=== PATIENT | male | born 1945 | race Caucasian/White ===

== ENCOUNTER 2021-09-03 00:39 | Emergency (ER) | payer OTHER ==
[2021-09-03 01:33] LABS: Protime INR 1.09
[2021-09-03 01:35] LABS: Absolute Lymphocytes (CBC) 1.4 K/uL (0.7-4.9); Basophils % 0.6 % (0-1.3); Hematocrit 40.8 % (39.6-49.0); Lymphocytes % 12.6 % (15.3-44.8); MPV 7.8 fL (7.6-11.3); RBC Red Blood Cell Count 4.51 M/uL (4.33-5.43)
[2021-09-03] MEDS ORDERED: NA CHLORIDE 0.9% 1,000 ML ONE (01:50)
[2021-09-03 01:51] LABS: ALT/SGPT 46 U/L (12-78); AST/SGOT 30 U/L (15-37); Albumin 3.7 g/dL (3.4-5.0); Alkaline Phosphatase 106 U/L (45-117); BUN Blood Urea Nitrogen 19 mg/dL (7-18); Bicarbonate 22 mmol/L (21-32); Bilirubin Direct 0.2 mg/dL (0-0.2); Glucose Level 131 mg/dL (74-106); NT PRO-BNP 81 pg/mL (<125); Potassium 4.1 mmol/L (3.5-5.1); Sodium Level 141 mmol/L (136-145); Troponin (Emerg Dept Use Only) < 0.02 ng/mL (0.0-0.045)
--- NOTE | 2021-09-03 04:31 | EDPHYS ---
Physician Documentation [facility] Name: Joni Pierson Age: 75 yrs Sex: Male : 1945 Arrival Date: 09/03/2021 Time: 00:42 Bed 18 Private MD: ED Physician Julio César Isaac HPI: 09/03 01:20 This 75 yrs old Male presents to ER via Ambulatory with complaints of pkl Epigastric Pain. 01:20 The patient or guardian reports chest pain that is located primarily in the substernal pkl area. Onset: yesterday. Associated signs and symptoms: Pertinent positives: cough, shortness of breath. The chest pain is described as dull. Patient has Hernández esophagitis. Said aspirated last night. Today complained of chest pain, cough and SOB. 01:26 The patient has experienced similar episodes in the past, a few times. pkl Historical: - Allergies: 01:07 No Known Allergies; sj1 - Home Meds: 01:07 Omeprazole Oral once daily [Active]; gabapentin oral once daily [Active]; sj1 - Immunization history:: Adult Immunizations up to date, Client reports receiving the 2nd dose of the Covid vaccine, Client reports receiving the 1st dose of the Covid vaccine. - Social history:: Smoking status: Patient denies any tobacco usage or history of. Patient/guardian denies using alcohol, street drugs, tobacco products. ROS: 01:26 Eyes: Negative for injury, pain, redness, and discharge, ENT: Negative for injury, pkl pain, and discharge, Neck: Negative for injury, pain, and swelling. 01:26 Cardiovascular: Positive for chest pain, with cough. 01:26 Respiratory: Positive for cough, with clear sputum, shortness of breath, at rest. 01:26 Abdomen/GI: Negative for abdominal pain, nausea, vomiting, and diarrhea. 01:26 Back: Negative for acute changes. 01:26 : Negative for urinary symptoms. 01:26 MS/extremity: Negative for acute changes. 01:26 Skin: Negative for rash. 01:26 Neuro: Negative for altered mental status, loss of consciousness. Exam: 01:26 Head/Face: Normocephalic, atraumatic. Eyes: Pupils equal round and reactive to light, pkl extra-ocular motions intact. Lids and lashes normal. Conjunctiva and sclera are non-icteric and not injected. Cornea within normal limits. Periorbital areas with no swelling, redness, or edema. ENT: Nares patent. No nasal discharge, no septal abnormalities noted. Tympanic membranes are normal and external auditory canals are clear. Oropharynx with no redness, swelling, or masses, exudates, or evidence of obstruction, uvula midline. Mucous membranes moist. Neck: Trachea midline, no thyromegaly or masses palpated, and no cervical lymphadenopathy. Supple, full range of motion without nuchal rigidity, or vertebral point tenderness. No Meningismus. Chest/axilla: Normal chest wall appearance and motion. Nontender with no deformity. No lesions are appreciated. Cardiovascular: Regular rate and rhythm with a normal S1 and S2. No gallops, murmurs, or rubs. Normal PMI, no JVD. No pulse deficits. 01:26 Respiratory: mild respiratory distress is noted, Respirations: normal, Breath sounds: rales, that are mild, are scattered. 01:26 Abdomen/GI: Bowel sounds: normal, Palpation: abdomen is soft and non-tender, in all quadrants. 01:26 Back: Exam negative for acute changes. 01:26 : Exam negative for acute changes. 01:26 Musculoskeletal/extremity: Exam is negative for acute changes. 01:26 Skin: Exam negative for rash. 01:26 Neuro: Orientation: is normal, Mentation: is normal, Cranial nerves: grossly normal, Motor: is normal. Vital Signs: 01:04 BP 124 / 69 RA Sitting (auto/reg); Pulse 68; Resp 18; Temp 98.6(O); Pulse Ox 97% on sj1 R/A; Weight 92.99 kg (R); Height 6 ft. 1 in. (185.42 cm) (R); Pain 4/10; 03:10 BP 143 / 76 LA Sitting (auto/reg); Pulse 68; Resp 18; Pulse Ox 97% on R/A; Pain 4/10; sj1 04:52 BP 135 / 74 LA Sitting (auto/reg); Pulse 60; Resp 17 S; Temp 98.8; Pulse Ox 99% on R/A; sj1 Pain 0/10; 01:04 Body Mass Index 27.05 (92.99 kg, 185.42 cm) sj1 [place] Coma Score: 01:16 Eye Response: spontaneous(4). Verbal Response: oriented(5). Motor Response: obeys sj1 commands(6). Total: 15. MDM: 00:53 Patient medically screened. pkl 04:27 Data reviewed: vital signs, nurses notes. ED course: Discussed lab and imaging studies pkl with patient. Advised to follow up with PCP in 2 to 3 days. To return if necessary. Patient understood instructions. 09/03 01:17 Order name: Basic Metabolic Panel pkl 09/03 01:17 Order name: CBC with Diff pkl 09/03 01:17 Order name: LFT's; Complete Time: 01:54 pkl 09/03 01:17 Order name: Magnesium; Complete Time: 01:54 pkl 09/03 01:17 Order name: NT PRO-BNP; Complete Time: 01:54 pkl 09/03 01:17 Order name: PT-INR; Complete Time: 01:43 pkl 09/03 01:17 Order name: Troponin (emerg Dept Use Only); Complete Time: 01:54 pkl 09/03 01:17 Order name: Blood Culture Adult (2) pkl 09/03 01:18 Order name: Basic Metabolic Panel; Complete Time: 01:54 EDMS 09/03 01:18 Order name: CBC with Automated Diff; Complete Time: 01:43 EDMS 09/03 01:18 Order name: Lactate; Complete Time: 01:54 pkl 09/03 01:18 Order name: Procalcitonin; Complete Time: 02:32 pkl 09/03 01:18 Order name: CRP; Complete Time: 01:54 pkl 09/03 01:17 Order name: XRAY Chest (1 view) pkl 09/03 01:17 Order name: EKG; Complete Time: 01:18 pkl 09/03 01:17 Order name: Cardiac monitoring; Complete Time: 01:22 pkl 09/03 01:17 Order name: EKG - Nurse/Tech; Complete Time: 01:22 pkl 09/03 01:17 Order name: IV Saline Lock; Complete Time: 01:24 pkl 09/03 01:17 Order name: Labs collected and sent; Complete Time: 01:24 pkl 09/03 01:17 Order name: O2 Per Protocol; Complete Time: 01:24 pkl 10/09 01:17 Order name: O2 Sat Monitoring; Complete Time: 01:24 pkl 09/03 01:24 Order name: Flu; Complete Time: 04:20 pkl 09/03 01:25 Order name: SARS-COV-2 RT PCR; Complete Time: 02:32 EDMS 09/03 01:55 Order name: CT Chest For PE Angio pkl Administered Medications: 01:44 Drug: NS 0.9% 1000 ml Route: IV; Rate: 125 ml/hr; Site: right antecubital; [facility] 05:12 Follow up: IV Status: Completed infusion; IV Intake: 400ml [facility] 04:37 Drug: Zosyn (piperacillin-tazobactam) 3.375 grams Route: IVPB; Infused Over: 60 mins; sj1 Site: right forearm; 05:12 Follow up: IV Status: Completed infusion; IV Intake: 100ml [facility] Disposition Summary: 09/03/21 04:31 Discharge Ordered Location: Home pkl Problem: new pkl Symptoms: have improved pkl Condition: Stable pkl Diagnosis - Aspiration pneumonia pkl Followup: pkl - With: Private Physician - When: 2 - 3 days - Reason: Re-evaluation by your physician Forms: - Medication Reconciliation Form pkl - Thank You Letter pkl - Antibiotic Education pkl - Prescription Opioid Use pkl Signatures: Dispatcher [employer] EDJulio César Mata MD MD pkl Heidi Valdovinos RN RN sj1 Corrections: (The following items were deleted from the chart) 01:24 01:18 Chest Single View+RAD.RAD.BRZ ordered. EDMS EDMS 01:56 01:25 CORONAVIRUS+MR.LAB.BRZ ordered. EDMS EDMS 02:50 01:18 Arterial Blood Gas+RC.LAB.BRZ ordered. EDMS EDMS
--- NOTE | 2021-09-03 04:31 | ER ---
Nurse's Notes [facility] Name: Joni Pierson Age: 75 yrs Sex: Male : 1945 Arrival Date: 09/03/2021 Time: 00:42 Bed 18 Private MD: Diagnosis: Aspiration pneumonia Presentation: 09/03 01:04 Chief complaint: Patient states: generalized boy aches since . Received covid sj1 vax x 2 doses. productive cough unknown color of sputum. worsening s/s today. Coronavirus screen: Vaccine status: Patient reports receiving the 2nd dose of the covid vaccine. Patient reports receiving the 1st dose of the Covid vaccine. Ebola Screen: Patient negative for fever greater than or equal to 101.5 degrees Fahrenheit, and additional compatible Ebola Virus Disease symptoms Patient denies exposure to infectious person. Initial Sepsis Screen: Does the patient meet any 2 criteria? No. Patient's initial sepsis screen is negative. Does the patient have a suspected source of infection? No. Patient's initial sepsis screen is negative. Risk Assessment: Do you want to hurt yourself or someone else? Patient reports no desire to harm self or others. Onset of symptoms was August 25, 2021. 01:04 Method Of Arrival: Ambulatory [facility] 01:04 Acuity: MANJEET 3 sj1 Triage Assessment: 01:19 General: Appears in no apparent distress. Behavior is calm, cooperative, appropriate sj1 for age. Pain: Complains of pain in gen body aches. EENT: No deficits noted. Neuro: No deficits noted. Cardiovascular: No deficits noted. Respiratory: Reports shortness of breath at rest on exertion cough that is productive. GI: No deficits noted. : No deficits noted. Derm: No deficits noted. Musculoskeletal: Reports weakness in gen weakness. Historical: - Allergies: 01:07 No Known Allergies; sj1 - Home Meds: 01:07 Omeprazole Oral once daily [Active]; gabapentin oral once daily [Active]; sj1 - Immunization history:: Adult Immunizations up to date, Client reports receiving the 2nd dose of the Covid vaccine, Client reports receiving the 1st dose of the Covid vaccine. - Social history:: Smoking status: Patient denies any tobacco usage or history of. Patient/guardian denies using alcohol, street drugs, tobacco products. Screenin:16 Abuse screen: Denies threats or abuse. Denies injuries from another. Nutritional sj1 screening: No deficits noted. Tuberculosis screening: No symptoms or risk factors identified. Fall Risk None identified. Assessment: 03:10 Reassessment: Patient appears in no apparent distress at this time. sj1 Vital Signs: 01:04 BP 124 / 69 RA Sitting (auto/reg); Pulse 68; Resp 18; Temp 98.6(O); Pulse Ox 97% on sj1 R/A; Weight 92.99 kg (R); Height 6 ft. 1 in. (185.42 cm) (R); Pain 4/10; 03:10 BP 143 / 76 LA Sitting (auto/reg); Pulse 68; Resp 18; Pulse Ox 97% on R/A; Pain 4/10; sj1 04:52 BP 135 / 74 LA Sitting (auto/reg); Pulse 60; Resp 17 S; Temp 98.8; Pulse Ox 99% on R/A; sj1 Pain 0/10; 01:04 Body Mass Index 27.05 (92.99 kg, 185.42 cm) sj1 Vitals: 01:16 Cardiac Rhythm Assessment Regular Sinus rhythm. sj1 [place] Coma Score: 01:16 Eye Response: spontaneous(4). Verbal Response: oriented(5). Motor Response: obeys sj1 commands(6). Total: 15. ED Course: 00:42 Patient arrived in ED. wm 00:53 Julio César Isaac MD is Attending Physician. pkl 01:06 EKG done, by electromechanical technician. reviewed by Julio César Isaac MD. oe 01:07 Triage completed. sj1 01:16 No apparent distress. Awaiting lab results. sj1 01:16 No provider procedures requiring assistance completed. Inserted saline lock: 18 gauge sj1 in right forearm, using aseptic technique. 01:16 Patient has correct armband on for positive identification. Placed in gown. Bed in low sj1 position. Call light in reach. Side rails up X 1. 01:20 Arm band placed on right wrist. Patient placed in an exam room, on a stretcher, on sj1 administrative specialist, on pulse oximetry. 01:23 CRP Sent. sj1 01:23 Procalcitonin Sent. sj1 01:23 Lactate Sent. sj1 01:23 CBC with Automated Diff Sent. sj1 01:23 Basic Metabolic Panel Sent. sj1 01:23 Basic Metabolic Panel Sent. sj1 01:23 CBC with Diff Sent. sj1 01:40 XRAY Chest (1 view) In Process Unspecified. EDMS 01:44 Blood Culture Adult (2) Sent. sj1 01:45 SARS-COV-2 RT PCR Sent. sj1 01:52 Flu Sent. sj1 02:57 CT Chest For PE Angio In Process Unspecified. EDMS 05:12 IV discontinued, intact, bleeding controlled, No redness/swelling at site. sj1 Administered Medications: 01:44 Drug: NS 0.9% 1000 ml Route: IV; Rate: 125 ml/hr; Site: right antecubital; sj1 05:12 Follow up: IV Status: Completed infusion; IV Intake: 400ml sj1 04:37 Drug: Zosyn (piperacillin-tazobactam) 3.375 grams Route: IVPB; Infused Over: 60 mins; sj1 Site: right forearm; 05:12 Follow up: IV Status: Completed infusion; IV Intake: 100ml sj1 Intake: 05:12 IV: 100ml; Total: 100ml. sj1 05:12 IV: 400ml; Total: 500ml. sj1 Outcome: 04:31 Discharge ordered by . pkl 04:53 Discharged to home ambulatory. sj1 04:53 Condition: stable 04:53 Discharge instructions given to patient, Instructed on discharge instructions, follow up and referral plans. medication usage, Demonstrated understanding of instructions, follow-up care, medications. 05:13 Patient left the ED. sj1 Signatures: Dispatcher [employer] EDMT Julio César Isaac MD MD pkl Espinosa, Orlando oe Marsh, Wendy wm Johnson, Sade, RN RN sj1 Corrections: (The following items were deleted from the chart) 01:24 01:23 To radiology for Chest Single View+RAD.RAD.BRZ. sj1 EDMS 01:56 01:44 CORONAVIRUS+MR.LAB.BRZ drawn and sent. sj1 EDMS
[2021-09-03] MEDS ORDERED: PIPERACIL/TAZO 3.375 GM VIAL IV ONE (04:55)
[2021-09-03] MEDS ORDERED: NA CHLORIDE 0.9% 100 ML ONE (04:55)
[2021-09-03 05:22] VITALS: BP 135/74; TEMP 98.8; O2SAT 99
--- NOTE | 2021-09-03 12:08 | RAD REPORT ---
EXAM DESCRIPTION: RAD - Chest Single View - 09/03/2021 1:40 am CLINICAL HISTORY: CHEST PAIN Chest pain. COMPARISON: Chest For Pe Angio dated 09/03/2021 FINDINGS: Portable technique limits examination quality. Mild bilateral interstitial opacities bilaterally are present, most likely representing viral infecti on. The heart is normal in size. No displaced fractures.Right humeral hardware.
--- NOTE | 2021-09-03 21:54 | RAD REPORT ---
EXAM DESCRIPTION: CT Angiography Chest With Intravenous Contrast CLINICAL HISTORY: Chest pain; Dyspnea TECHNIQUE: Axial computed tomographic angiography images of the chest with intravenous contrast. S agittal and coronal reformatted images were created and reviewed. This CT exam was performed using one or more of the following dose reduction techniques: automated exposure control, adjustment of t he mA and/or kV according to patient size, and/or use of iterative reconstruction technique. MIP reconstructed images were created and reviewed. COMPARISON: No relevant prior studies available. FINDINGS: Artifacts: Motion artifact degrades image quality and limits evaluation of segmental and subsegmental vessels. Pulmonary arteries: No central or proximal segmental pulmonary arterial filling defects. Aorta: No acute findings. No thoracic aortic aneurysm. Lungs: Patchy multifocal groundglass opacities within the lungs bilaterally, left greater than righ t. Pleural space: Unremarkable. No significant effusion. No pneumothorax. Heart: The heart is moderately enlarged. Coronary artery calcification. No significant pericardia l effusion. No evidence of RV dysfunction. Mediastinum: Small to moderate hiatal hernia. Bones/joints: Multilevel spondylosis. No acute fracture. Severe degenerative changes at the left gl enohumeral articulation. Intra-articular osteochondral bodies. Partially visualized right shoulder ar throplasty hardware. No dislocation. Soft tissues: Unremarkable. Lymph nodes: Unremarkable. No enlarged lymph nodes. Liver: The liver is enlarged. IMPRESSION: 1. Motion artifact degrades image quality and limits evaluation of segmental and subse gmental vessels. No central or proximal segmental pulmonary embolic disease. 2. Multifocal infiltrates bilaterally, left greater than right. 3. Other findings as above. Electronically signed by: Becka Baltazar MD 09/03/2021 3:56 AM CDT Due to temporary technical issues with the PACS/Fluency reporting system, reports are being signed by the in house radiologists without review as a courtesy to insure prompt reporting. The interpreting radiologist is fully responsible for the content of the report.
== END 2021-09-03 05:13 | disposition home or self-care (01) ==
LOC: ER 00:39
DX: J69.0 Pneumonitis due to inhalation of food and vomit (principal); Z20.822 Contact with and (suspected) exposure to COVID-19
CPT/HCPCS: 96365; 96361; 93005; 87040 ×2; 85025; 80048; 36415; 83735; 85610; 80076; 83605; 84484; 84145; 83880; 86140; 87804 ×2; 71275; 71045; 99284; U0003; Q9967; J2543; J7030